=== PATIENT | male | born 1990 | race Caucasian/White ===

== ENCOUNTER 2018-06-29 00:33 | Emergency (ER) | payer MEDICAID ==
[~2018-06-29] VITALS: Ht 170.2 cm; Wt 68.0 kg
[2018-06-29 00:36] VITALS: Ht 170.2 cm; Wt 68.0 kg
[2018-06-29 02:38] VITALS: BP 144/72
== END 2018-06-29 02:38 | disposition home or self-care (01) ==
LOC: ED 00:33
DX: S82.832A Other fracture of upper and lower end of left fibula, initial encounter for closed fracture (principal); W18.49XA Other slipping, tripping and stumbling without falling, initial encounter; Y93.01 Activity, walking, marching and hiking; Y92.89 Other specified places as the place of occurrence of the external cause; Y99.8 Other external cause status
CPT/HCPCS: J3010; J3490; Q0092